=== PATIENT | male | born 1930 | race Caucasian/White ===

== ENCOUNTER 2017-05-10 05:24 | Emergency (ER) | payer MEDICARE ==
[~2017-05-10] VITALS: Ht 180.3 cm; Wt 79.8 kg
[2017-05-10] MEDS ORDERED: SODIUM CHLORIDE 0.9% 1,000 ML IV ONE (05:28)
[2017-05-10] MEDS ORDERED: LABETALOL 5MG/ML, 20ML IVPush ONE (05:30)
[2017-05-10] MEDS ORDERED: SODIUM CHLORIDE FLUSH 10ML SYR IVF ONE (05:30)
[2017-05-10] MEDS ORDERED: LABETALOL 5MG/ML, 20ML ONE (05:52)
[2017-05-10 06:06] LABS: BLOOD UREA NITROGEN 25 mg/dL (7-18)
[2017-05-10] MEDS ORDERED: LISINOPRIL 20 MG TABLET ONE (08:10)
[2017-05-10] MEDS ORDERED: LISINOPRIL 20 MG TABLET PO ONE (08:30)
[2017-05-10 09:27] VITALS: BP 170/88
== END 2017-05-10 09:29 | disposition home or self-care (01) ==
LOC: ED 08:41
DX: R04.0 Epistaxis (principal); I11.9 Hypertensive heart disease without heart failure; Z86.73 Personal history of transient ischemic attack (TIA), and cerebral infarction without residual deficits; I25.2 Old myocardial infarction
CPT/HCPCS: 30901; 36415; 80048; 82040; 85025; 85610; 85730; 96361; 96374; 99285; J7030

== ENCOUNTER 2017-09-13 20:39 | Emergency (ER) | payer MEDICARE ==
[~2017-09-13] VITALS: Ht 177.8 cm; Wt 86.9 kg
[2017-09-13] MEDS ORDERED: LIDOCAINE 1%, 20ML ONE (21:05)
[2017-09-13] MEDS ORDERED: PHENYLEPHRINE NASAL 1%, 15ML SPRAY ONE (21:05)
[2017-09-13] MEDS ORDERED: LIDOCAINE 1%, 20ML INFIL ONE (21:30)
[2017-09-13] MEDS ORDERED: SILVER NITRATE STICK TP ONE (22:06)
[2017-09-13 23:06] VITALS: BP 164/87
[2017-09-15] MEDS ORDERED: CLON0.1T PO (22:12)
[2017-09-15] MEDS ORDERED: [UNRECOGNIZED DRUG - REMARK] (22:25)
[2017-09-15] MEDS ORDERED: MIRALAX (22:25)
[2017-09-15] MEDS ORDERED: PRILOSEC PO (22:25)
[2017-09-17] MEDS ORDERED: AMLO2.5T PO (09:28)
== END 2017-09-13 23:16 | disposition home or self-care (01) ==
LOC: ED 21:09
DX: R04.0 Epistaxis (principal); I10 Essential (primary) hypertension; I25.2 Old myocardial infarction
CPT/HCPCS: 30901; 93005; 99284; 99285

== ENCOUNTER → 2017-10-27 | Outpatient (CLI) | payer MEDICARE ==
[~2017-10-27] MED LIST: AMLO2.5T PO; CLON0.1T PO; MIRALAX; PRILOSEC PO; [UNRECOGNIZED DRUG - REMARK]
[2017-10-27 09:16] LABS: ASPARTATE AMINO TRANSFERASE 17 U/L (15-37); BLOOD UREA NITROGEN 30 mg/dL (7-18)
== END ==
LOC: LAB 08:49
PROVIDERS: ATTEND Internal Medicine Nephrology
DX: N18.9 Chronic kidney disease, unspecified (principal)
CPT/HCPCS: 36415; 80053